=== PATIENT | male | born 1955 | race Caucasian/White ===

== ENCOUNTER 2018-09-18 09:10 | Observation (INO) ==
[2018-09-18] MEDS ORDERED: Sod Chloride 0.9% Inj 1,000 ML IV.SIG ONE (09:25)
--- NOTE | 2018-09-18 09:38 | ED ---
HPI General Chief Complaint: Syncope Stated Complaint: Sob Time Seen by Provider: 09/18/18 09:22 Source: patient Mode of arrival: ambulatory Limitations: no limitations History of Present Illness complaint: Reports collapsed Onset (ago): minute(s) -: second(s) Description of event: Reports other (Past status he was urinating this morning) Prodromal symptoms: Reports lightheaded Witnessed: no Context: Reports after urination Injuries sustained associated with event: Reports none Current symptoms: Reports lightheaded, chest pain and shortness of breath; Denies nausea History: Reports other (Patient reports that his blood pressure medications are being adjusted. He states that his is out of town. He states that his blood pressure always goes down when she is out of town.); Denies previous syncopal episode and seizure disorder Treatments prior to arrival: Reports none Related Data Home Medications Medication Instructions Recorded Confirmed amlodipine 5 mg PO DAILY 09/18/18 09/18/18 escitalopram oxalate 20 mg PO DAILY 09/18/18 09/18/18 losartan 50 mg PO DAILY 09/18/18 09/18/18 meloxicam 7.5 mg PO DAILY 09/18/18 09/18/18 simvastatin 20 mg PO QPM 09/18/18 09/18/18 Allergies Allergy/AdvReac Type Severity Reaction Status Date / Time ibuprofen Allergy Mild ITCHES Verified 09/18/18 09:40 Review of Systems ROS: all other systems reviewed are negative [facility] Medical History Medical History Hypertension (Acute) Surgical History Surgical History Gastric bypass status for obesity (Acute) Social History Social History Substance History: No History of Abuse Second Hand Smoke Exposure: No Smoking Status: Never smoker How Often Do You Have a Drink Containing Alcohol: 4 or more times a week Recent Travel in [facility] within the Last 8 Weeks: No Recent Out of Country Travel within the Last 8 Weeks: No Immunization History Tetanus Immunization: Unsure Exam Const General: cooperative, healthy appearing, comfortable, no acute distress, well developed and other (Looks pale) Orientation: alert, awake and oriented x3 HENMT Head: normal to inspection, normocephalic and atraumatic Eyes Alignment and Position: alignment normal and position abnormal Conjunctivae: conjunctivae normal Sclera: sclerae normal EOM: EOM intact bilaterally Neck Neck: normal visual inspection and full ROM Chest Chest: normal inspection of the chest Resp Effort & Inspection: normal respiratory effort and able to speak in complete sentences Auscultation: clear to auscultation bilaterally Cardio Rate: regular rate Rhythm: regular rhythm Other: Blood pressure seems a bit low with a systolic of 105. His heart rate is noted to go from the 80s while lying down to about 110 when sitting. GI Inspection: normal to inspection Palpation: soft Back/Spine/Pelvis Cervical Spine: cervical ROM normal Thoracic/Lumbar Spine: thoraco-lumbar ROM normal Skin General: no rashes or lesions noted, turgor normal and dry skin Neuro General: alert, awake, oriented x3, moves all extremities and CN's II-XI intact bilaterally Extrem General: normal to inspection and full ROM Psych Appearance: grossly normal Mental Status: mental status grossly normal Speech and Movement: speech and movement normal Mood: congruent mood Affect: normal affect Attitude: cooperative Thought Process: normal Thought Content: normal Judgment: judgment good Course Initial Documented Vital Signs Temperature 97.3 F L 09/18/18 09:11 Pulse Rate 110 H 09/18/18 09:11 Respiratory Rate 22 09/18/18 09:11 Blood Pressure 136/71 09/18/18 09:11 Last Documented Vital Signs Temperature 97.3 F L 09/18/18 09:11 Pulse Rate 66 09/18/18 11:08 Respiratory Rate 18 09/18/18 11:08 Blood Pressure 126/68 09/18/18 11:08 Pulse Oximetry 100 09/18/18 11:08 Critical Care Time Critical Care Time: Yes Total Critical Care Time: 45 Attestation: Time to perform other separately billable procedures was not included in the critical care time. My time did not include minutes spent treating any other patients simultaneously or on activities that did not directly contribute to the patient's treatment. The services I provided to this patient were to treat and/or prevent clinically significant deterioration due to syncope, chest pain, shortness of breath I provided critical care services requiring my management, as noted below: Chart data review, documentation time, medication orders and management, vital sign assessments/reviewing monitor data, ordering and reviewing lab tests, ordering and interpreting/reviewing x-rays and diagnostic studies, care of the patient and discussion of the patient with the admitting physicians Medical Decision Making MDM Narrative Medical decision making narrative: This patient presented to us following a syncopal or near syncopal event just prior to arrival. He was urinating when he passed out. Prodrome of lightheadedness. The patient reports that his blood pressure medication has recently been changed. He was noted to be relatively hypotensive at 106/55 on arrival with a heart rate of 93. Lying down , his heart rate was in the 80s. When he sat up, his heart rate went to 110. Based upon that, IV fluids were ordered. Labs have resulted. He does look like he is significantly dehydrated by BUN/ creatinine. He will be given another liter of fluid. Following that, orthostatic vital signs will be checked. 11:10 AM On recheck, the patient is complaining with significant chest discomfort and shortness of breath. He was complaining with chest discomfort and shortness of breath on arrival but those symptoms seemed pretty minor at the time. Initial troponin is negative. I have ordered aspirin, Nitropaste and morphine for him. 11:45 AM The patient reports that his symptoms are moderately improved with aspirin, Nitropaste and morphine. His initial workup is negative. He is being admitted to the chest pain center for further evaluation. Medical Screen Exam Complete: Yes Emergency Medical Condition: Yes Lab Data Lab results reviewed: Yes I reviewed the patient's lab results. Result diagrams: 09/18/18 09:37 09/18/18 09:37 Lab Results 09/18/18 09/18/18 Range/Units 09:37 09:37 WBC 9.3 (4.0-11.0) th/mm3 RBC 3.62 L (4.50-5.90) mil/mm3 Hgb 11.6 L (13.0-17.0) gm/dL Hct 33.1 L (39.0-51.0) % MCV 91.3 (80.0-100.0) fL MCH 31.9 (27.0-34.0) pg MCHC 34.9 (32.0-36.0) % RDW 13.2 (11.6-17.2) % Plt Count 279 (150-450) th/mm3 MPV 8.5 (7.0-11.0) fL Neut % (Auto) 75.5 H (16.0-70.0) % Lymph % (Auto) 15.6 (9.0-44.0) % [place] % (Auto) 6.7 (0.0-8.0) % Eos % (Auto) 1.6 (0.0-4.0) % Baso % (Auto) 0.6 (0.0-2.0) % Neut # (Auto) 7.0 (1.8-7.7) th/mm3 Lymph # (Auto) 1.4 (1.0-4.8) th/mm3 [place] # (Auto) 0.6 (0.0-0.9) th/mm3 Eos # (Auto) 0.1 (0.0-0.4) th/mm3 Baso # (Auto) 0.1 (0.0-0.2) th/mm3 WBC Differential . Differential Comment Auto diff final Sodium 143 (136-145) meq/L Potassium 4.6 (3.5-5.1) meq/L Chloride 111 H (98-107) meq/L Carbon Dioxide 24.1 (21.0-32.0) meq/L Anion Gap 8 (5-15) meq/L BUN 33 H (7-18) mg/dL Creatinine 0.89 (0.60-1.30) mg/dL Estimated GFR 87 L (>89) mL/min Random Glucose 121 H (74-106) mg/dL Calcium 7.8 L (8.5-10.1) mg/dL Troponin I Less than 0.02 L (0.02-0.05) ng/mL Imaging Data Radiologist's impression: Chest X-Ray 09/18/18 11:10 CONCLUSION: Negative for an acute process ECG Data EKG Prior to Arrival: No Attestation: I personally reviewed and interpreted this ECG as follows: Discharge Plan Discharge Disposition Patient Disposition: ED Admit(ED Internal Use Only) Discharge Order Discharge Orders: ED Use Only Admit Order (Routine); Ordered 09/18/18 Ordered By: Olivia Young Discharge Details Diagnosis: Chest pain, Syncope Physicians Team ED Provider: Olivia Young Primary Care Provider: UNKNOWN, Rxs /Orders / Referrals /Forms Prescriptions: No Action losartan 50 mg Tablet 50 mg PO DAILY RF: 0 amlodipine 5 mg Tablet 5 mg PO DAILY RF: 0 meloxicam 7.5 mg Tablet 7.5 mg PO DAILY RF: 0 simvastatin 20 mg Tablet 20 mg PO QPM RF: 0 escitalopram oxalate 20 mg Tablet 20 mg PO DAILY RF: 0 Status ED Status: With Doctor
[2018-09-18 09:46] LABS: Baso # (Auto) 0.1 th/mm3 (0.0-0.2); Baso % (Auto) 0.6 % (0.0-2.0); Eos # (Auto) 0.1 th/mm3 (0.0-0.4); Eos % (Auto) 1.6 % (0.0-4.0); Hematocrit 33.1 % (39.0-51.0); Hemoglobin 11.6 gm/dL (13.0-17.0); Lymph # (Auto) 1.4 th/mm3 (1.0-4.8); Lymph % (Auto) 15.6 % (9.0-44.0); Mean Corpuscular HGB Conc 34.9 % (32.0-36.0); Mean Corpuscular Hemoglobin 31.9 pg (27.0-34.0); Mean Corpuscular Volume 91.3 fL (80.0-100.0); Mean Platelet Volume 8.5 fL (7.0-11.0); Mono # (Auto) 0.6 th/mm3 (0.0-0.9); Mono % (Auto) 6.7 % (0.0-8.0); Neut % (Auto) 75.5 % (16.0-70.0); Platelet Count 279 th/mm3 (150-450); Red Blood Count 3.62 mil/mm3 (4.50-5.90); Red Cell Distribution Width 13.2 % (11.6-17.2); White Blood Count 9.3 th/mm3 (4.0-11.0)
[2018-09-18 10:08] LABS: Anion Gap 8 meq/L (5-15); Blood Urea Nitrogen 33 mg/dL (7-18); Calcium 7.8 mg/dL (8.5-10.1); Carbon Dioxide 24.1 meq/L (21.0-32.0); Chloride 111 meq/L (98-107); Glomerular Filtration Rate 87 mL/min (>89); Glucose,Random 121 mg/dL (74-106); Potassium 4.6 meq/L (3.5-5.1); Sodium 143 meq/L (136-145)
[2018-09-18] MEDS ORDERED: Sod Chloride 0.9% Inj 1,000 ML IV.SIG SCH (10:30)
[2018-09-18] MEDS ORDERED: Morphine Inj 4 MG/ML Vial IV.PUSH ONE (11:09)
--- NOTE | 2018-09-18 11:39 | XR ---
EXAM DATE: 09/18/2018 11:26 AM EST AGE/SEX: 63 years / Male INDICATIONS: Short of breath and mid chest pain. CLINICAL DATA: This is the patient's initial encounter. Patient reports that signs and symptoms have been present for 1 day and indicates a pain score of 7/10. MEDICAL/SURGICAL HISTORY: Hypertension. None. COMPARISON: . FINDINGS: A single AP view of the chest demonstrates the lungs to be symmetrically aerated without evidence of mass, infiltrate or effusion. The cardiomediastinal contours are unremarkable. Osseous structures a re intact. CONCLUSION: Negative for an acute process Electronically signed by: Landon Ocampo MD 09/18/2018 11:38 AM EST
[2018-09-18 13:58] LABS: Creatine Kinase 85 U/L (39-308)
--- NOTE | 2018-09-18 14:06 | P.HPCA ---
History of Present Illness Primary Care Physician: UNKNOWN Chief Complaint: Chest pain History of Present Illness: This is a 63-year-old male with history of hypertension, hyperlipidemia, and chronic knee pain that presents to ED via private vehicle with a friend with complaint of chest discomfort. States he woke up earlier this morning feeling sweaty. He decided to go to the bathroom. While in the bathroom about the urinate, he began to feel weak. He states he fell onto the toilet and then from there is slid down to the floor. Denies having loss of consciousness. Denied have sensation of heart beating rapidly or irregularly. Denied having a headache. Denied visual changes. He states the weakness was generalized weakness. Little bit after that is when he started having a chest pressure. The discomfort he describes was at the center of his chest and at times also to the right side of his chest. Worse level is a 7 out of 10. States is still present but not as bad as a 4 out of 10. He was short of breath, nauseous, diaphoretic. He states that when this happened he had his friend check his blood pressure and was 107/70. States is low for him. States that whenever his was out of town, his blood pressure goes lower. She is currently in [place]. Cannot recall ever having a stress test. He states he has seen a preanalytics team lead somewhat recently and had an EKG done, cannot recall who the preanalytics team lead was. History of hypertension, hyperlipidemia, and chronic knee pain. Denies known diabetes and known heart disease. Denies family history of CAD. He is a non-smoker. He has an average a glass of wine a day. Denies illicit drug use. He is . His is currently in [place]. - Diagnosis (1) Chest pain (2) Hypertension Review of Systems General: Patient denies fevers, chills, and recent travel. HEENT: Patient denies headache, sore throat, difficulty swallowing. Cardiovascular: Has the chest discomfort as mentioned above. Denies sensation of heart beating rapidly or irregularly. No syncope. Complains of diaphoresis. Respiratory: He was short of breath. Denies inspirational chest discomfort. Denies coughing wheezing or hemoptysis. GI: He was nauseous. Patient denies vomiting, diarrhea, abdominal pain, bloody stools. Musculoskeletal: Chronic knee pains. Patient denies joint edema. Denies calf pain or edema. Neurovascular: Patient denies numbness, tingling, weakness in extremities. Denies headache. Endocrine: Denies polyuria and polydipsia. Hematologic: Denies easy bruising. Skin: Denies rash or itching. PMFSH - History History Provided By: Patient - Medical History Medical History: Medical History (Last Reviewed 09/18/18 @ 09:36 by Olivia Young) Hypertension - Surgical History Surgical History: Surgical History (Last Updated 09/18/18 @ 09:23 by Emily Etienne RN) Gastric bypass status for obesity - Tobacco History Second Hand Smoke Exposure: No Smoking Status: Never smoker - Alcohol History How Often Do You Have a Drink Containing Alcohol: 4 or more times a week - Substance Use History Substance History: No History of Abuse - Travel History Recent Travel in the [place] Within the Last 8 Weeks: No Recent Travel Out of the Country Within the Last 8 Weeks: No - Immunization History Tetanus Immunization: Unsure Medications and Allergies Active Medications: Active Medications Aspirin (Aspirin) 325 mg PO DAILY TONY Ondansetron HCl (Zofran Inj) 4 mg IV.PUSH Q6H PRN PRN Reason: NAUSEA Sodium Chloride (Ns Flush) 2 ml IV.FLUSH BID TONY Sodium Chloride (Ns Flush) 2 ml IV.FLUSH PRN PRN PRN Reason: FLUSH AFTER USING IV ACCESS Allergies Allergy/AdvReac Type Severity Reaction Status Date / Time ibuprofen Allergy Mild ITCHES Verified 09/18/18 09:40 Home Medications Medication Instructions Recorded Confirmed Type amlodipine 5 mg PO DAILY 09/18/18 09/18/18 History escitalopram oxalate 20 mg PO DAILY 09/18/18 09/18/18 History losartan 50 mg PO DAILY 09/18/18 09/18/18 History meloxicam 7.5 mg PO DAILY 09/18/18 09/18/18 History simvastatin 20 mg PO QPM 09/18/18 09/18/18 History Exam Vital signs: Vital Signs 09/18/18 09:11 09/18/18 09:19 09/18/18 09:37 Temperature 97.3 F L Pulse Rate 110 H 81 93 H Respiratory Rate 22 18 Blood Pressure 136/71 106/55 L Pulse Oximetry 100 100 09/18/18 10:35 09/18/18 11:08 Temperature Pulse Rate 75 66 Respiratory Rate 18 18 Blood Pressure 126/68 126/68 Pulse Oximetry 100 100 Intake & Output 09/17/18 09/18/18 09/18/18 18:59 06:59 18:59 Intake Total 1999 Balance 1999 Weight 113.398 kg Intake: IV 1999 NS Inj 1,000 ML @ 1000 mls/hr 1999 IV.SIG BOLUS TONY Rx#:[id number] Narrative: GENERAL: This is a well-nourished, well-developed patient, in no apparent distress. Patient speaks in clear complete sentences. Patient is pleasant. HEENT: Head is atraumatic and normocephalic. Neck is supple without lymphadenopathy and trachea is midline. No JVD or carotid bruits. CARDIOVASCULAR: Regular rate and rhythm without murmurs, gallops, or rubs. RESPIRATORY: Clear to auscultation. Breath sounds equal bilaterally. No wheezes , rales, or rhonchi. Chest wall is nontender. No use of accessory muscles. GASTROINTESTINAL: Abdomen is nontender, nondistended. Abdomen soft. No obvious pulsatile mass or bruit. No CVA tenderness. Strong femoral pulses bilaterally. Normal bowel sounds in all quadrants. MUSCULOSKELETAL: Patient is moving upper and lower extremities freely. No calf tenderness or edema, no Homans sign. Strong pulses in upper and lower extremities. NEUROLOGICAL: Patient is alert and oriented. Cranial nerves 2-12 are grossly intact. No focal deficits and speech is clear. SKIN: No rash and turgor is normal. Results 09/18/18 09:37 09/18/18 09:37 Cardiac Enzymes 09/18/18 09/18/18 Range/Units 09:37 12:35 Troponin I Less than 0.02 L Less than 0.02 L (0.02-0.05) ng/mL CBC 09/18/18 Range/Units 09:37 WBC 9.3 (4.0-11.0) th/mm3 RBC 3.62 L (4.50-5.90) mil/mm3 Hgb 11.6 L (13.0-17.0) gm/dL Hct 33.1 L (39.0-51.0) % Plt Count 279 (150-450) th/mm3 Neut # (Auto) 7.0 (1.8-7.7) th/mm3 Lymph # (Auto) 1.4 (1.0-4.8) th/mm3 [place] # (Auto) 0.6 (0.0-0.9) th/mm3 Eos # (Auto) 0.1 (0.0-0.4) th/mm3 Baso # (Auto) 0.1 (0.0-0.2) th/mm3 Comprehensive Metabolic Panel 09/18/18 Range/Units 09:37 Sodium 143 (136-145) meq/L Potassium 4.6 (3.5-5.1) meq/L Chloride 111 H (98-107) meq/L Carbon Dioxide 24.1 (21.0-32.0) meq/L BUN 33 H (7-18) mg/dL Creatinine 0.89 (0.60-1.30) mg/dL Calcium 7.8 L (8.5-10.1) mg/dL Intake and Output 09/17/18 09/18/18 09/18/18 22:59 06:59 14:59 Intake Total 1999 Balance 1999 Intake: IV 1999 NS Inj 1,000 ML @ 1000 mls/hr 1999 IV.SIG BOLUS TONY Rx#:[id number] Other: Weight 113.398 kg Patient Weight 09/19/18 06:59 Weight 113.398 kg - Imaging and Cardiology Imaging: Impressions Chest X-Ray 09/18/18 11:10 CONCLUSION: Negative for an acute process Caprini VTE Risk Assessment Caprini VTE Risk Assessment: Moderate/High Risk (score >= 2) Caprini Risk Assessment Model: Point Value = 1 Point Value = 2 Point Value = 3 Point Value = 5 Age 41-60 Minor surgery BMI > 25 kg/m2 Swollen legs Varicose veins or History of unexplained or recurrent spontaneous Oral contraceptives or hormone replacement Sepsis (< 1 month) Serious lung disease, including pneumonia (< 1 month) Abnormal pulmonary function Acute myocardial infarction Congestive heart failure (< 1 month) History of inflammatory bowel disease Medical patient at bed rest Age 61-74 Arthroscopic surgery Major open surgery (> 45 min) Laparoscopic surgery (> 45 min) Malignancy Confined to bed (> 72 hours) Immobilizing plaster cast Central venous access Age >= 75 History of VTE Family history of VTE Factor V Leiden Prothrombin [id number] Lupus anticoagulant Anticardiolipin antibodies Elevated serum homocysteine Heparin-induced thrombocytopenia Other congenital or acquired thrombophilia Stroke (< 1 month) Elective arthroplasty Hip, pelvis, or leg fracture Acute spinal cord injury (< 1 month) Prophylaxis Regimen: Total Risk Factor Score Risk Level Prophylaxis Regimen 0-1 Low Early ambulation 2 Moderate Order ONE of the following: *Sequential Compression Device (SCD) *Heparin 5000 units SQ BID 3-4 Higher Order ONE of the following medications: *Heparin 5000 units SQ TID *Enoxaparin/Lovenox 40 mg SQ daily (WT < 150 kg, CrCl > 30 mL/min) *Enoxaparin/Lovenox 30 mg SQ daily (WT < 150 kg, CrCl > 10-29 mL/min) *Enoxaparin/Lovenox 30 mg SQ BID (WT < 150 kg, CrCl > 30 mL/min) AND/OR *Sequential Compression Device (SCD) 5 or more Highest Order ONE of the following medications: *Heparin 5000 units SQ TID (Preferred with Epidurals) *Enoxaparin/Lovenox 40 mg SQ daily (WT < 150 kg, CrCl > 30 mL/min) *Enoxaparin/Lovenox 30 mg SQ daily (WT < 150 kg, CrCl > 10-29 mL/min) *Enoxaparin/Lovenox 30 mg SQ BID (WT < 150 kg, CrCl > 30 mL/min) AND *Sequential Compression Device (SCD) Assessment and Plan - Assessment (1) Chest pain Code(s): R07.9 - Chest pain, unspecified Status: Acute (2) Hypertension Code(s): I10 - Essential (primary) hypertension Status: Acute - Plan * Chest pain: Patient will have serial cardiac enzymes and EKGs for ruling out purposes and will be seen by Dr. Dalton Bah of cardiology in the chest pain center. If he rules out, he will have a Lexiscan and if nonischemic would be discharged home with instructions to follow-up with PCP and his preanalytics team lead. Return to ED for interval issues. * Hypertension: Continue medication. Patient is stable at this time. He is agreeable to this plan. (1) Chest pain Qualifiers: Chest pain type: unspecified Qualified Code(s): R07.9 - Chest pain, unspecified
[2018-09-18] MEDS ORDERED: Regadenoson Inj 0.4 MG/5 ML Syringe IV.PUSH ONE (16:37)
[2018-09-18 16:41] LABS: Creatine Kinase 79 U/L (39-308)
--- NOTE | 2018-09-18 19:34 | NM ---
EXAM DATE: 09/18/2018 7:28 PM EST AGE/SEX: 63 years / Male INDICATIONS:Angina. . Substernal chest pain. CLINICAL DATA: This is the patient's initial encounter. Patient reports that signs and symptoms have been present for 1 day and indicates a pain score of 0/10. MEDICAL/SURGICAL HISTORY: Hypertension. Gastric bypass. COMPARISON: No prior exams available for comparison. DOSE: 11.1 mCi Tc 99m Myoview at rest 35.2 mCi [id number] at stress 0.4 mg Lexiscan STRESS SYMPTOMS: Chest pressure. EJECTION FRACTION: 65 % TECHNIQUE: The patient underwent pharmacologic stress with infusion of prescribed dose. Continuous ECG tracing was monitored during stress. Gated SPECT imaging was performed after stress and conventi onal SPECT imaging was performed at rest. The examination was performed on a SPECT/CT scanner, both attenuation and non-corrected datasets were reviewed. FINDINGS: Distribution: The maximum perfused segment at stress is in the anterior wall. Perfusion Study: The pattern of perfusion at stress is within normal limits. The summed stress sc ore of 1. Gated Study: There are intact wall motion and wall thickening without hypokinetic or dyskinetic segm ents. The ejection fraction is calculated at 65%. RISK CATEGORY: Low (<1% Annual Motality Rate) CONCLUSION: 1. Normal wall motion and calculated ejection fraction of 65%. 2. No fixed or reversible wall defects to suggest ischemia or infarction. Electronically signed by: Tony Katz MD 09/18/2018 7:33 PM EST
[2018-09-18 20:20] VITALS: RESP 17
[2018-09-18] MEDS ORDERED: Acetaminophen 500 MG Tablet PO PRN (20:40)
[2018-09-19 00:25] VITALS: BP 121/66; PULSE 77; TEMP 99; O2SAT 97
[2018-09-19] MEDS ORDERED: Aspirin 325 MG Tablet PO SCH (09:00)
--- NOTE | 2018-09-19 09:14 | ECG ---
Date Performed: 09/18/2018 Time Performed: 12:30:18 PTAGE: 63 years EKG: Sinus rhythm RIGHT BUNDLE BRANCH BLOCK LEFT ANTERIOR FASCICULAR BLOCK POSSIBLE SEPTAL MYOCARDIAL INFARCTION ABNOR MAL ECG INTERPRETATION BASED ON A DEFAULT AGE OF 40 YEARS PREVIOUS TRACING : 09/18/2018 09.26 Since previous tracing, no significant change noted DOCTOR: Dalton Bah Interpretating Date/Time 09/19/2018 09:13:37
--- NOTE | 2018-09-19 09:15 | ECG ---
Date Performed: 09/18/2018 Time Performed: 09:26:19 PTAGE: 63 years EKG: Sinus rhythm RIGHT BUNDLE BRANCH BLOCK LEFT ANTERIOR FASCICULAR BLOCK POSSIBLE SEPTAL MYOCARDIAL INFARCTION ABNOR MAL ECG INTERPRETATION BASED ON A DEFAULT AGE OF 40 YEARS PREVIOUS TRACING : 07/30/2013 09.40 Since previous tracing, no significant change noted DOCTOR: Dalton Bah Interpretating Date/Time 09/19/2018 09:14:40
--- NOTE | 2018-09-19 09:21 | TR ---
Date Performed: 09/18/2018 Time Performed: 16:55:29 DOCTOR: Dalton Bah DRUG LIST: CLINICAL HISTORY: REASON FOR TEST: Angina REASON FOR ENDING: OBSERVATION: CONCLUSION: COMMENTS: Lexiscan stress test was performed under standard four minute protocol. Radionuclide was injected one minute prior to ending the test. No electrocardiographic abormalities were present t o suggest ischemia. Nuclear imaging and interpretation are pending.
== END 2018-09-19 01:25 | disposition home or self-care (01) ==
LOC: NEDA 09:10 → NEPE 09:10 → NEDA 15:21 → NEPFCDU 15:23
PROVIDERS: ADMIT Internal Medicine Cardiovascular Disease; ATTEND Internal Medicine Cardiovascular Disease

== ENCOUNTER 2018-09-19 10:41 | Observation (INO) ==
--- NOTE | 2018-09-19 11:39 | ED ---
HPI General Chief complaint: Weakness Stated complaint: Poss GI bleed / weakness Time Seen by Provider: 09/19/18 10:50 Source: patient, EMS, RN notes reviewed and old records reviewed Mode of arrival: EMS History of Present Illness HPI narrative: 63yM presenting with weakness. The patient was seen here yesterday for chest pain, kept in chest pain center for observation, and discharged. He states that he's been having generalized weakness since his discharge and reports black/ tarry stools for the past several days. Denies fever or chills, current chest pain, cough, nausea or vomiting, diarrhea, or dysuria. Admits to dyspnea at rest and near-syncope prior to his evaluation yesterday. Related Data Home Medications Medication Instructions Recorded Confirmed amlodipine 5 mg PO DAILY 09/18/18 09/19/18 escitalopram oxalate 20 mg PO DAILY 09/18/18 09/19/18 losartan 50 mg PO DAILY 09/18/18 09/19/18 meloxicam 7.5 mg PO DAILY 09/18/18 09/19/18 simvastatin 20 mg PO QPM 09/18/18 09/19/18 Allergies Allergy/AdvReac Type Severity Reaction Status Date / Time ibuprofen Allergy Mild ITCHES Verified 09/18/18 09:40 Review of Systems ROS: all other systems reviewed are negative [facility] Medical History Medical History Depression (Acute) Hyperchloremia (Acute) Hypertension (Acute) Surgical History Surgical History Gastric bypass status for obesity (Acute) Social History Social History Substance History: No History of Abuse Second Hand Smoke Exposure: No Smoking Status: Never smoker How Often Do You Have a Drink Containing Alcohol: 4 or more times a week Recent Travel in [facility] within the Last 8 Weeks: No Recent Out of Country Travel within the Last 8 Weeks: No Immunization History Tetanus Immunization: Unsure Exam Const General: healthy appearing and no acute distress HENMT Face and sinus: normal facial exam Eyes General: appearance normal, both eyes and all related structures Chest Chest: normal inspection of the chest Resp Effort & Inspection: normal respiratory effort Auscultation: no rhonchi and no wheezes Cardio Rate: regular rate Rhythm: regular rhythm GI Inspection: non-distended Palpation: soft and nontender Other: 1 non-thrombosed external hemorrhoid noted at 11:00 position, no fissures , stool black, guaiac positive Rectal exam chaperoned by Humphrey (ED RN) Skin General: no rashes or lesions noted Neuro General: alert, awake, oriented x3 and no focal motor deficits Psych Affect: normal affect Course Initial Documented Vital Signs Pulse Rate 68 09/19/18 10:46 Respiratory Rate 18 09/19/18 10:46 Blood Pressure 116/64 09/19/18 10:46 Pulse Oximetry 99 09/19/18 10:46 Last Documented Vital Signs Pulse Rate 73 09/19/18 10:50 Respiratory Rate 18 09/19/18 10:50 Blood Pressure 116/64 09/19/18 10:50 Pulse Oximetry 97 09/19/18 10:50 Medical Decision Making MDM Narrative Medical decision making narrative: Assessment: 63yM presenting with generalized weakness and guaiac positive stool Plan: EKG and monitor Labs CT abd/ pelvis Addendum: Patient found to have acute blood loss anemia (Hg 11.6--> 9.3 in 24 hours) and remains symptomatic. The remainder of his workup showed no significant abnormalities. Case discussed with Dr. Anderson of [facility], patient to stay for observation and further workup. Patient understands and agrees with plan. Medical Screen Exam Complete: Yes Emergency Medical Condition: Yes Differential Diagnosis Differential Diagnosis: Differential diagnosis includes, but is not limited to: lower GI bleed, anemia, diverticulosis, mass, electrolyte abnormality, arrhythmia Medical Records Medical records reviewed: Yes I reviewed the patient's medical records. Lab Data Lab results reviewed: Yes I reviewed the patient's lab results. Result diagrams: 09/19/18 11:09/19/18 11: Lab Results 09/19/18 09/19/18 09/19/18 Range/Units 11:13 11: 11: WBC 7.6 (4.0-11.0) th/mm3 RBC 2.89 L (4.50-5.90) mil/mm3 Hgb 9.3 L D (13.0-17.0) gm/dL Hct 26.4 L (39.0-51.0) % MCV 91.2 (80.0-100.0) fL MCH 32.0 (27.0-34.0) pg MCHC 35.1 (32.0-36.0) % RDW 13.4 (11.6-17.2) % Plt Count 221 (150-450) th/mm3 MPV 8.6 (7.0-11.0) fL Neut % (Auto) 59.1 (16.0-70.0) % Lymph % (Auto) 29.7 (9.0-44.0) % Simpson % (Auto) 8.4 H (0.0-8.0) % Eos % (Auto) 2.0 (0.0-4.0) % Baso % (Auto) 0.8 (0.0-2.0) % Neut # (Auto) 4.5 (1.8-7.7) th/mm3 Lymph # (Auto) 2.3 (1.0-4.8) th/mm3 Simpson # (Auto) 0.6 (0.0-0.9) th/mm3 Eos # (Auto) 0.2 (0.0-0.4) th/mm3 Baso # (Auto) 0.1 (0.0-0.2) th/mm3 WBC Differential . Differential Comment Auto diff final Sodium 143 (136-145) meq/L Potassium 4.3 (3.5-5.1) meq/L Chloride 111 H (98-107) meq/L Carbon Dioxide 24.8 (21.0-32.0) meq/L Anion Gap 7 (5-15) meq/L BUN 24 H (7-18) mg/dL Creatinine 0.89 (0.60-1.30) mg/dL Estimated GFR 87 L (>89) mL/min Random Glucose 100 (74-106) mg/dL Calcium 8.1 L (8.5-10.1) mg/dL Magnesium 2.2 (1.5-2.5) mg/dL Total Bilirubin 0.5 (0.2-1.0) mg/dL AST 25 (15-37) U/L ALT 20 (12-78) U/L Alkaline Phosphatase 77 (45-117) U/L Troponin I Less than 0.02 L (0.02-0.05) ng/mL Total Protein 6.1 L (6.4-8.2) g/dL Albumin 3.0 L (3.4-5.0) g/dL Blood Type A Positive Blood Type Recheck Required Antibody Screen Negative Imaging Data Radiologist's impression: Abdomen/Pelvis CT 09/19/18 11:07 CONCLUSION: 1. Postsurgical changes in the gastric and gastroesophageal region characteristic of lap band placement. 2. Small hiatal hernia above the lap band. 3. Otherwise no evidence of acute process, suspicious mass or lymphadenopathy. ECG Data Attestation: I personally reviewed and interpreted this ECG as follows: Interpretation: Rate: 63 BPM Rhythm: Sinus Laurel: Left Intervals: Complete RBBB, QTc 458 ms Q waves: None T waves: Inverted in III ST segments: No elevations or depressions Impression: Non-specific EKG, no changes as compared to EKG from 09/18/2018. Discharge Plan Discharge Disposition Patient Disposition: ED Admit(ED Internal Use Only) Discharge Condition Condition: Stable Discharge Order Discharge Orders: ED Use Only Admit Order (Routine); Ordered 09/19/18 Ordered By: Claire Larios Discharge Details Diagnosis: Acute blood loss anemia, Acute lower GI bleeding Physicians Team ED Provider: Claire Larios Primary Care Provider: UNKNOWN, Rxs /Orders / Referrals /Forms Prescriptions: No Action losartan 50 mg Tablet 50 mg PO DAILY RF: 0 amlodipine 5 mg Tablet 5 mg PO DAILY RF: 0 meloxicam 7.5 mg Tablet 7.5 mg PO DAILY RF: 0 simvastatin 20 mg Tablet 20 mg PO QPM RF: 0 escitalopram oxalate 20 mg Tablet 20 mg PO DAILY RF: 0 Discharge Interventions Interventions: Vital Signs Last Done: 09/19/18 10:50 Status ED Status: Pending Admission
[2018-09-19 11:47] LABS: Baso # (Auto) 0.1 th/mm3 (0.0-0.2); Baso % (Auto) 0.8 % (0.0-2.0); Eos # (Auto) 0.2 th/mm3 (0.0-0.4); Hematocrit 26.4 % (39.0-51.0); Hemoglobin 9.3 gm/dL (13.0-17.0); Lymph # (Auto) 2.3 th/mm3 (1.0-4.8); Lymph % (Auto) 29.7 % (9.0-44.0); Mean Corpuscular HGB Conc 35.1 % (32.0-36.0); Mean Corpuscular Volume 91.2 fL (80.0-100.0); Mean Platelet Volume 8.6 fL (7.0-11.0); Mono # (Auto) 0.6 th/mm3 (0.0-0.9); Mono % (Auto) 8.4 % (0.0-8.0); Neut # (Auto) 4.5 th/mm3 (1.8-7.7); Neut % (Auto) 59.1 % (16.0-70.0); Platelet Count 221 th/mm3 (150-450); Red Blood Count 2.89 mil/mm3 (4.50-5.90); Red Cell Distribution Width 13.4 % (11.6-17.2); White Blood Count 7.6 th/mm3 (4.0-11.0)
[2018-09-19 11:58] LABS: Anion Gap 7 meq/L (5-15); Aspartate Aminotransferase 25 U/L (15-37); Blood Urea Nitrogen 24 mg/dL (7-18); Calcium 8.1 mg/dL (8.5-10.1); Carbon Dioxide 24.8 meq/L (21.0-32.0); Chloride 111 meq/L (98-107); Glomerular Filtration Rate 87 mL/min (>89); Glucose,Random 100 mg/dL (74-106); Magnesium 2.2 mg/dL (1.5-2.5); Potassium 4.3 meq/L (3.5-5.1); Sodium 143 meq/L (136-145)
[2018-09-19 11:59] LABS: Alanine Aminotransferase 20 U/L (12-78)
[2018-09-19 12:03] LABS: Alkaline Phosphatase 77 U/L (45-117); Total Protein 6.1 g/dL (6.4-8.2)
--- NOTE | 2018-09-19 13:32 | CT ---
EXAM DATE: 09/19/2018 1:19 PM EST AGE/SEX: 63 years / Male INDICATIONS: Blood in stool, weakness. CLINICAL DATA: This is the patient's initial encounter. Patient reports that signs and symptoms have been present for 1 day and indicates a pain score of 0/10. MEDICAL/SURGICAL HISTORY: Hypertension. Gastric bypass. ORAL CONTRAST: No oral contrast ingested. RADIATION DOSE: 24.10 CTDI (mGy) COMPARISON: No prior exams available for comparison. TECHNIQUE: Multiple contiguous axial images were obtained through the abdomen and pelvis following b olus infusion of 94 ml Omnipaque 350 (iohexol) nonionic water-soluble contrast as a single exam dos e. No oral contrast ingested. Using automated exposure control and adjustment of the mA and/or kV ac cording to patient size, radiation dose was kept as low as reasonably achievable to obtain optimal di agnostic quality images. DICOM format image data is available electronically for review and comparis on. FINDINGS: Lower Lungs: The visualized lower lungs are clear. Liver: The liver has a homogeneous density without space-occupying lesion. There is no dilation of th e biliary tree. Gallbladder is mildly distended. There is no evidence of cholelithiasis or wall thick ening. Spleen: Homogeneous density without enlargement. Pancreas: Unremarkable without mass or calcification. Kidneys: Normal in size and shape. No evidence of mass or hydronephrosis. Adrenal Glands: Unremarkable. Aorta: The aorta and proximal iliac vessels are grossly unremarkable without aneurysmal dilation. Bowel/Mesentery: Postsurgical changes are identified in the gastric region. Anastomotic sutures ident ified in the cardia of the stomach. A gastric lap band is noted in place. The distal esophagus demons trates mild generalized wall thickening part of which may represent a small residual hiatal hernia. The bowel loops are otherwise grossly unremarkable. The cecum and sigmoid colon have a normal config uration. Abdominal Wall: Intact. Retroperitoneum: No evidence of adenopathy in the retrocrural, para-aortic, or deep pelvic regions. Bladder: Contours are smooth. Reproductive Organs: No abnormal masses or calcifications seen. Inguinal: A fat-containing left inguinal hernia is noted. Bony Structures: Unremarkable. CONCLUSION: 1. Postsurgical changes in the gastric and gastroesophageal region characteristic of lap band placem ent. 2. Small hiatal hernia above the lap band. 3. Otherwise no evidence of acute process, suspicious mass or lymphadenopathy. Electronically signed by: Carlton F Tony, MD Board Certified Radiologist 09/19/2018 1:31 PM EST
--- NOTE | 2018-09-19 14:35 | P.HPIM ---
History of Present Illness Primary Care Physician: UNKNOWN Chief Complaint: ' I almost passed out'. History of Present Illness: patient is a 63 y/o male with history of hypertension and dyslipidemia who presented back to ER with generalized weakness. he was admitted to this hospital yesterday because of chest pain. he had a negative stress test and was discharged home. he says that today when he was in the bathroom he felt dizzy and lightheaded along with some sob. he says that ' he was about to pass out'. he denies any chest pain today. he has mild generalized abdominal discomfort with no nausea or vomiting. he says that he noticed some ' very black stools' yesterday.he denies any diarrhea/ constipation or weight loss. he denies any NSAIDs use. he says that he had a colonoscopy about nine years ago which was reportedly normal. Review of Systems Review of Systems: all other systems reviewed are negative [facility] Medical History Medical History Depression (Acute) Hyperchloremia (Acute) Hypertension (Acute) Surgical History Surgical History Gastric bypass status for obesity (Acute) Social History Social History Substance History: No History of Abuse Second Hand Smoke Exposure: No Smoking Status: Never smoker How Often Do You Have a Drink Containing Alcohol: 4 or more times a week Recent Travel in [facility] within the Last 8 Weeks: No Recent Out of Country Travel within the Last 8 Weeks: No Immunization History Tetanus Immunization: Unsure Medications and Allergies Allergies Allergy/AdvReac Type Severity Reaction Status Date / Time ibuprofen Allergy Mild ITCHES Verified 09/18/18 09:40 Home Medications Medication Instructions Recorded Confirmed Type amlodipine 5 mg PO DAILY 09/18/18 09/19/18 History escitalopram oxalate 20 mg PO DAILY 09/18/18 09/19/18 History losartan 50 mg PO DAILY 09/18/18 09/19/18 History meloxicam 7.5 mg PO DAILY 09/18/18 09/19/18 History simvastatin 20 mg PO QPM 09/18/18 09/19/18 History Active Medications: Active Medications Escitalopram Oxalate (Lexapro) 20 mg PO DAILY TONY Non-Formulary Medication (Simvastatin [Simvastatin]) 20 mg PO QPM [facility] Pantoprazole Sodium (Protonix Inj) 40 mg IV.PUSH Q24H [facility] Sodium Chloride (Ns Flush) 2 ml IV.FLUSH PRN PRN PRN Reason: FLUSH AFTER USING IV ACCESS Physical Exam Vital signs: Last Vital Signs Pulse 73 09/19/18 10:50 Resp 18 09/19/18 10:50 BP 116/64 09/19/18 10:50 Pulse Ox 97 09/19/18 10:50 Intake & Output 09/17/18 09/18/18 09/19/18 09/20/18 06:59 06:59 06:59 06:59 Weight 113.398 kg Constitutional no acute distress Routine HEENT Exam Eye: Present PERRL Routine Neck Exam Present supple Routine Respiratory Exam Present CTA bilaterally Routine Cardiovascular Exam Present RRR Routine Abdominal Exam Present soft Comments: minimal to mild generalized tenderness. Routine Extremities Exam Comments: no pedal edema. Routine Neurological Exam Present alert and oriented X3 Results Labs CBC & Chem 7: 09/19/18 11:13 09/19/18 11:13 Imaging Impressions Abdomen/Pelvis CT 09/19/18 11:07 CONCLUSION: 1. Postsurgical changes in the gastric and gastroesophageal region characteristic of lap band placement. 2. Small hiatal hernia above the lap band. 3. Otherwise no evidence of acute process, suspicious mass or lymphadenopathy. Caprini VTE Risk Assessment Caprini VTE Risk Assessment: Moderate/High Risk (score >= 2) VTE Pharmacological Exception Reason: High risk for bleeding Caprini Risk Assessment Model: Point Value = 1 Point Value = 2 Point Value = 3 Point Value = 5 Age 41-60 Minor surgery BMI > 25 kg/m2 Swollen legs Varicose veins or History of unexplained or recurrent spontaneous Oral contraceptives or hormone replacement Sepsis (< 1 month) Serious lung disease, including pneumonia (< 1 month) Abnormal pulmonary function Acute myocardial infarction Congestive heart failure (< 1 month) History of inflammatory bowel disease Medical patient at bed rest Age 61-74 Arthroscopic surgery Major open surgery (> 45 min) Laparoscopic surgery (> 45 min) Malignancy Confined to bed (> 72 hours) Immobilizing plaster cast Central venous access Age >= 75 History of VTE Family history of VTE Factor V Leiden Prothrombin [id number] Lupus anticoagulant Anticardiolipin antibodies Elevated serum homocysteine Heparin-induced thrombocytopenia Other congenital or acquired thrombophilia Stroke (< 1 month) Elective arthroplasty Hip, pelvis, or leg fracture Acute spinal cord injury (< 1 month) Prophylaxis Regimen: Total Risk Factor Score Risk Level Prophylaxis Regimen 0-1 Low Early ambulation 2 Moderate Order ONE of the following: *Sequential Compression Device (SCD) *Heparin 5000 units SQ BID 3-4 Higher Order ONE of the following medications: *Heparin 5000 units SQ TID *Enoxaparin/Lovenox 40 mg SQ daily (WT < 150 kg, CrCl > 30 mL/min) *Enoxaparin/Lovenox 30 mg SQ daily (WT < 150 kg, CrCl > 10-29 mL/min) *Enoxaparin/Lovenox 30 mg SQ BID (WT < 150 kg, CrCl > 30 mL/min) AND/OR *Sequential Compression Device (SCD) 5 or more Highest Order ONE of the following medications: *Heparin 5000 units SQ TID (Preferred with Epidurals) *Enoxaparin/Lovenox 40 mg SQ daily (WT < 150 kg, CrCl > 30 mL/min) *Enoxaparin/Lovenox 30 mg SQ daily (WT < 150 kg, CrCl > 10-29 mL/min) *Enoxaparin/Lovenox 30 mg SQ BID (WT < 150 kg, CrCl > 30 mL/min) AND *Sequential Compression Device (SCD) Assessment and Plan Plan A/P - GI bleed with history of gastric bypass/lap ban placement ; keep NPO for now- monitor H/H - start on PPI and consult GI. continue with supportive care with IV fluid/ antiemetics as needed. -anemia (Hb 11.6 yesterday ---> 9.3 today)/near syncope; will monitor H/H and transfuse as needed. of note; the patient just had a recent negative stress test. -hypertension; hold home BP meds for now and continue to monitor. -dyslipidemia; resume home meds -DVT prophylaxis with SCD's- no chemical prophylaxis due to GI bleed. Discussed Condition With: the ER physician and the patient. Discharge Planning: home when stable- pending GI work-up.
--- NOTE | 2018-09-19 15:08 | P.CONGI ---
History of Present Illness Chief complaint: Acute blood loss anemia, lower GI bleed. History of Present Illness: This is a 63 y/o male with history of hypertension and dyslipidemia, gastric by pass, GERD who presented to ER with generalized weakness. he was admitted to this hospital yesterday with chest pain, had negative stress test and was discharged home. He continued to feel dizzy, almost passing out. Endorses generalized abdominal discomfort but no nausea or vomiting. Endorses black tarry stools started yesterday. Denies any diarrhea, constipation or weight loss. he denies any NSAIDs use. He takes Tums as needed for GERD. drinks one glass of wine daily Last time he had colonoscopy was nine years ago. He has hx of gastric bypass and has been on iron supplement for long time. Abdomen/ Pelvis CT 09/19/18 Postsurgical changes in the gastric and gastroesophageal region characteristic of lap band placement. Small hiatal hernia above the lap band. Otherwise no evidence of acute process, suspicious mass or lymphadenopathy. labs revealed anemia of 9.3. Review of Systems All other systems reviewed negative except as stated in HPI PMFSH - History History Provided By: Patient - Medical History Medical History: Medical History (Last Reviewed 09/19/18 @ 14:34 by Luz Anderson MD) Depression Hyperchloremia Hypertension - Surgical History Surgical History: Surgical History (Last Reviewed 09/19/18 @ 14:34 by Luz Anderson MD) Gastric bypass status for obesity - Tobacco History Second Hand Smoke Exposure: No Tobacco Use In Past 30 Days: No Smoking Status: Never smoker - Alcohol History How Often Do You Have a Drink Containing Alcohol: 4 or more times a week - Substance Use History Substance History: No History of Abuse - Travel History Recent Travel in the [place] Within the Last 8 Weeks: No Recent Travel Out of the Country Within the Last 8 Weeks: No - Immunization History Tetanus Immunization: Unsure Medications and Allergies Active Medications: Active Medications Escitalopram Oxalate (Lexapro) 20 mg PO DAILY TON[facility] Sodium Chloride (Ns Inj) 1,000 mls @ 100 mls/hr IV.CONT .Q10H [facility] Ondansetron HCl (Zofran Inj) 4 mg IV.PUSH Q8H PRN PRN Reason: NAUSEA Pantoprazole Sodium (Protonix Inj) 40 mg IV.PUSH Q24H [facility] Pravastatin Sodium (Pravachol) 40 mg PO HS [facility]ON[facility] Sodium Chloride (Ns Flush) 2 ml IV.FLUSH PRN PRN PRN Reason: FLUSH AFTER USING IV ACCESS Allergies Allergy/AdvReac Type Severity Reaction Status Date / Time ibuprofen Allergy Mild ITCHES Verified 09/18/18 09:40 Home Medications Medication Instructions Recorded Confirmed Type amlodipine 5 mg PO DAILY 09/18/18 09/19/18 History escitalopram oxalate 20 mg PO DAILY 09/18/18 09/19/18 History losartan 50 mg PO DAILY 09/18/18 09/19/18 History meloxicam 7.5 mg PO DAILY 09/18/18 09/19/18 History simvastatin 20 mg PO QPM 09/18/18 09/19/18 History Exam Vital signs: Vital Signs 09/19/18 10:46 09/19/18 10:50 Pulse Rate 68 73 Respiratory Rate 18 18 Blood Pressure 116/64 116/64 Pulse Oximetry 99 97 Intake & Output 09/18/18 09/19/18 09/19/18 18:59 06:59 18:59 Weight 113.398 kg - Constitutional no acute distress - Routine HEENT Exam Head: Present: normocephalic - Routine Cardiovascular Exam Present: RRR - Routine Abdominal Exam Present: soft, normoactive bowel sounds, tenderness. Absent: distended - Routine Skin Exam Present: intact, dry - Routine Neurological Exam Present: alert, oriented X3 Results - Labs CBC & Chem 7: 09/19/18 11:13 09/19/18 11:13 Labs: Laboratory Results - last 24 hr 09/19/18 09/19/18 09/19/18 11:13 11:13 11:13 WBC 7.6 RBC 2.89 L Hgb 9.3 L D Hct 26.4 L MCV 91.2 MCH 32.0 MCHC 35.1 RDW 13.4 Plt Count 221 MPV 8.6 Neut % (Auto) 59.1 Lymph % (Auto) 29.7 Emmons % (Auto) 8.4 H Eos % (Auto) 2.0 Baso % (Auto) 0.8 Neut # (Auto) 4.5 Lymph # (Auto) 2.3 Emmons # (Auto) 0.6 Eos # (Auto) 0.2 Baso # (Auto) 0.1 WBC Differential . Differential Comment Auto diff final Sodium 143 Potassium 4.3 Chloride 111 H Carbon Dioxide 24.8 Anion Gap 7 BUN 24 H Creatinine 0.89 Estimated GFR 87 L Random Glucose 100 Calcium 8.1 L Magnesium 2.2 Total Bilirubin 0.5 AST 25 ALT 20 Alkaline Phosphatase 77 Troponin I Less than 0.02 L Total Protein 6.1 L Albumin 3.0 L Blood Type A Positive Blood Type Recheck Required Antibody Screen Negative - Imaging Impressions Abdomen/Pelvis CT 09/19/18 11:07 CONCLUSION: 1. Postsurgical changes in the gastric and gastroesophageal region characteristic of lap band placement. 2. Small hiatal hernia above the lap band. 3. Otherwise no evidence of acute process, suspicious mass or lymphadenopathy. Assessment and Plan - Plan - Anemia, black stools- could be PUD, hx of gastric bypass. Endorses generalized abdominal discomfort but no nausea or vomiting. Endorses black tarry stools started yesterday. Denies any diarrhea, constipation or weight loss. he denies any NSAIDs use. He takes Tums as needed for GERD. drinks one glass of wine daily Last time he had colonoscopy was nine years ago. He has hx of gastric bypass and has been on iron supplement for long time. Abdomen/Pelvis CT 09/19/18 Postsurgical changes in the gastric and gastroesophageal region characteristic of lap band placement. Small hiatal hernia above the lap band. Otherwise no evidence of acute process, suspicious mass or lymphadenopathy. labs revealed anemia of 9.3. - History of hypertension and dyslipidemia, gastric by pass, GERD Plan: - Clears - EGD/colonoscopy in the am - Golytely today - Consents - NPO mn - Monitor hh - Transfuse as needed - Cont. PPI - Pt seen and examined by Dr. Paulson and myself and this note is written on his behalf
[2018-09-19] MEDS ORDERED: PEG 3350/E-Lyte Soln 4000 ML Bottle PO ONE (16:00)
[2018-09-19] MEDS: Pantoprazole Inj 40 MG Vial IV.PUSH SCH (17:38)
[2018-09-19] MEDS: Sod Chloride 0.9% Inj 1,000 ML IV.CONT SCH (17:40)
[2018-09-19 19:07] LABS: Hematocrit 28.9 % (39.0-51.0); Hemoglobin 9.9 gm/dL (13.0-17.0)
[2018-09-20 00:47] LABS: Hematocrit 24.8 % (39.0-51.0)
[2018-09-20] MEDS: Sod Chloride 0.9% Inj 1,000 ML IV.CONT SCH ×2 (02:27→12:45)
[2018-09-20 04:56] LABS: Hematocrit 25.4 % (39.0-51.0); Hemoglobin 8.6 gm/dL (13.0-17.0)
--- NOTE | 2018-09-20 11:54 | P.PNIM ---
Subjective Interval history: Patient seen and evaluated shortly after colonoscopy performed. Patient was recently discharged but returns to emergency department for complaints of generalized weakness found to have low hemoglobin 9.3 from previously being greater than 11 patient endorsed symptoms of weakness, shortness of breath, and very few palpitations which he thinks may be secondary to anxiety. Physical Exam Vital signs: Last Vital Signs Temp 98.7 F 09/20/18 08:00 Pulse 68 09/20/18 08:00 Resp 16 09/20/18 08:00 BP 119/76 09/20/18 08:00 Pulse Ox 98 09/20/18 08:00 Intake & Output 09/18/18 09/19/18 09/20/18 09/21/18 06:59 06:59 06:59 06:59 Intake Total 2014 Balance 2014 Weight 113.469 kg General: No acute distress, conversational HEENT: EOMI, no conjunctival pallor appreciated Cardiovascular: S1/S2. Regular Respiratory: Clear to auscultation anteriorly and posteriorly Gastrointestinal: Soft, minimal tenderness in epigastric region, nondistended, no guarding, no rebound. Positive bowel sounds Extremity: No lower extremity edema, no calf tenderness Results Labs CBC & Chem 7: 09/20/18 03:40 09/19/18 11:13 Imaging Imaging: Impressions Abdomen/Pelvis CT 09/19/18 11:07 CONCLUSION: 1. Postsurgical changes in the gastric and gastroesophageal region characteristic of lap band placement. 2. Small hiatal hernia above the lap band. 3. Otherwise no evidence of acute process, suspicious mass or lymphadenopathy. Assessment and Plan Plan Patient is a 63-year-old male with past medical history of hypertension, and hyper lipidemia with recent admission 09/18-09/19 for generalized weakness found to have negative stress test and discharge presenting for generalized weakness and abdominal pain found to have reduced hemoglobin level concerning for acute blood loss anemia. Gastroenterology: Acute blood loss anemia Gastroenterology consulted and recommendation is appreciated via EMR. Colonoscopy 09/20 Maintain 2 large-bore peripheral IVs and IV fluid hydration currently n.p.o. Transfuse less than 7 Cardiology: Hypertension, hyperlipidemia Hold home antihypertensive for now CODE STATUS: Full code DVT prophylaxis: SCD Disposition: MedSurg Diet: Currently n.p.o. Progress Note: Quality VTE Deep Vein Thrombosis/Pulmonary Embolism Present on Admission: No
--- NOTE | 2018-09-20 12:15 | GIPROC ---
[facility] [address] [facility]. [facility], [address] COLONOSCOPY PROCEDURE REPORT EXAM DATE: 09/20/2018 PATIENT NAME: Qamar Coon MR #: [id number] BIRTHDATE: 1955 ENDOSCOPIST: Iker Paulson MD ORDER #: [id number] MANAGER ORACLE: Gabby Vivar and Shena Veronica STATUS: inpatient INDICATIONS: The patient is a 63 yr old male here for a colonoscopy due to iron deficiency anemia and melena PROCEDURE PERFORMED: Colonoscopy with biopsy MEDICATIONS: Per Anesthesia and None. PREP QUALITY: poor ESTIMATED BLOOD LOSS: None CONSENT: The patient understands the risks and benefits of the procedure and understands that these risks include, but are not limited to: sedation, allergic reaction, infection, perforation and/or bleeding. Alternative means of evaluation and treatment include, among others: physical exam, x-rays, and/or surgical intervention. The patient elects to proceed with this endoscopic procedure. medical equipment was checked for proper function. Hand hygiene and appropriate measures for infection prevention was taken. After the risks, benefits and alternatives of the procedure were thoroughly explained, Informed consent was verified, confirmed and timeout was successfully executed by the treatment team. A digital exam was performed and revealed no abnormalities of the rectum The Pentax EC-3490Li endoscope was introduced through the anus and advanced to the cecum, which was identified by both the appendix and ileocecal valve. The instrument was then slowly withdrawn as the colon was fully examined. COLON FINDINGS: Mild diverticulosis was noted in the descending colon and sigmoid colon. Two sessile polyps ranging between 3-5mm in size were found in the sigmoid colon. A polypectomy was performed with a cold snare. Retroflexed views revealed internal hemorrhoids and Retroflexed views revealed medium internal hemorrhoids The scope was then completely withdrawn from the patient and the procedure terminated. PROCEDURE WITHDRAWAL TIME:8minutes ADVERSE EVENTS: There were no complications. IMPRESSIONS: 1. Mild diverticulosis was noted in the descending colon and sigmoid colon 2. Two sessile polyps ranging between 3-5mm in size were found in the sigmoid colon; polypectomy was performed with a cold snare 3. Retroflexed views revealed internal hemorrhoids 4. Retroflexed views revealed medium internal hemorrhoids 5. Was performed 6. Revealed no abnormalities of the rectum RECOMMENDATIONS: Await biopsy results. Biopsy results will not be ready for 7-10 days. If you don't hear from us in two weeks, call our office for results. RECALL: Return 1 year Colonoscopy Colon prep poor Iker Paulson MD eSigned: Iker Paulson MD 09/20/2018 12:15 PM cc: PATIENT NAME: Qamar Coon MR#: [id number]
--- NOTE | 2018-09-20 12:24 | GIPROC ---
[facility] [address] [facility]. [facility], [address] EGD PROCEDURE REPORT EXAM DATE: 09/20/2018 PATIENT NAME: Qamar Coon MR #: [id number] BIRTHDATE: 1955 ATTENDING: Iker Paulson MD ORDER #: [id number] SURGICAL ELASTIC KNITTER: Gbaby Vivar and Shena Veronica STATUS: inpatient INDICATIONS: The patient is a 63 yr old male here for an EGD due to iron deficiency anemia and melena PROCEDURE PERFORMED: EGD w/ biopsy MEDICATIONS: Per Anesthesia and None. TOPICAL ANESTHETIC: CONSENT: The patient understands the risks and benefits of the procedure and understands that these risks include, but are not limited to: sedation, allergic reaction, infection, perforation and/or bleeding. Alternative means of evaluation and treatment include, among others: physical exam, x-rays, and/or surgical intervention. The patient elects to proceed with this endoscopic procedure. medical equipment was checked for proper function. Hand hygiene and appropriate measures for infection prevention was taken. After the risks, benefits and alternatives of the procedure were thoroughly explained, Informed consent was verified, confirmed and timeout was successfully executed by the treatment team. The patient was anesthetized with topical anesthesia and the EC-3490Li (Pedi C) endoscope was introduced through the mouth and advanced to the proximal jejunum. Retroflexion was not performed The gastroscope was then slowly withdrawn and removed. ESOPHAGUS: There was LA Class A esophagitis noted. STOMACH: A gastric bypass was found at the gastro-jejunal anastamosis. Ulceration was seen at the site. Large august ulcer ,multiple red spots in the base.Epinephrine inj f/b APC done. JEJUNUM: The exam showed no abnormalities in the jejunum. ADVERSE EVENTS: There were no complications. IMPRESSIONS: 1. There was LA Class A esophagitis noted 2. Gastric bypass was found at the gastro-jejunal anastamosis 3. Large august ulcer ,multiple red spots in the base.Epinephrine inj f/b APC done 4. The exam showed no abnormalities in the jejunum 5. Retroflexion was not performed RECOMMENDATIONS: 1. Continue PPI 2. Monitor H/H Supportive tx PATIENT CONDITION: stable DISPOSITION: Inpatient REPEAT EXAM: Return 3 months EGD Iker Paulson MD eSigned: Iker Paulson MD 09/20/2018 12:24 PM cc: PATIENT NAME: Qamar Coon MR#: [id number]
[2018-09-20] MEDS: Pantoprazole Inj 40 MG Vial IV.PUSH SCH (15:50)
--- NOTE | 2018-09-20 16:22 | ECG ---
Date Performed: 09/19/2018 Time Performed: 11:08:46 PTAGE: 63 years EKG: Sinus rhythm LEFT AXIS DEVIATION RIGHT BUNDLE BRANCH BLOCK MINIMAL VOLTAGE CRITERIA FOR LVH, CONSIDER NORMAL VARI ANT ABNORMAL ECG NO PREVIOUS TRACING DOCTOR: Jairo Mckeon Interpretating Date/Time 09/20/2018 16:21:00
[2018-09-20 20:20] LABS: Hematocrit 23.1 % (39.0-51.0); Mean Corpuscular HGB Conc 34.6 % (32.0-36.0); Mean Corpuscular Hemoglobin 30.9 pg (27.0-34.0); Mean Corpuscular Volume 89.3 fL (80.0-100.0); Mean Platelet Volume 8.3 fL (7.0-11.0); Platelet Count 177 th/mm3 (150-450); Red Blood Count 2.58 mil/mm3 (4.50-5.90); White Blood Count 6.3 th/mm3 (4.0-11.0)
[2018-09-21] MEDS ORDERED: Pantoprazole Inj 40 MG Vial IV.PUSH SCH (06:00)
[2018-09-21 08:07] VITALS: BP 144/83; PULSE 75; RESP 16; TEMP 98; O2SAT 96
[2018-09-21 08:38] LABS: Hematocrit 22.9 % (39.0-51.0); Hemoglobin 8.1 gm/dL (13.0-17.0); Mean Corpuscular HGB Conc 35.4 % (32.0-36.0); Mean Corpuscular Hemoglobin 32.2 pg (27.0-34.0); Mean Corpuscular Volume 91.1 fL (80.0-100.0); Mean Platelet Volume 8.9 fL (7.0-11.0); Platelet Count 189 th/mm3 (150-450); Red Blood Count 2.52 mil/mm3 (4.50-5.90); Red Cell Distribution Width 13.1 % (11.6-17.2); White Blood Count 6.5 th/mm3 (4.0-11.0)
--- NOTE | 2018-09-21 12:34 | P.PNGI ---
Subjective Interval history: Patient sitting up at bedside Denies any nausea or vomiting, states tolerating full liquid diet No reported bleeding Patient post EGD and colonoscopy <Mariela Borrego - Last Filed: 09/21/18 12:28> Physical Exam Vital signs: Vital Signs 09/20/18 16:00 09/20/18 16:19 09/20/18 16:21 Temperature Pulse Rate 68 79 90 Respiratory Rate 16 16 16 Blood Pressure 109/71 110/72 126/79 Pulse Oximetry 98 96 97 09/20/18 20:00 09/20/18 23:55 09/21/18 04:02 Temperature 97.9 F 97.7 F 97.9 F Pulse Rate 78 76 72 Respiratory Rate 18 18 18 Blood Pressure 108/57 L 107/60 96/54 L Pulse Oximetry 97 98 95 09/21/18 08:00 Temperature 98.0 F Pulse Rate 75 Respiratory Rate 16 Blood Pressure 144/83 H Pulse Oximetry 96 Intake & Output 09/20/18 09/21/18 09/21/18 18:59 06:59 18:59 Intake Total 1220 / 1220 720 / 720 Balance 1220 / 1220 720 / 720 Weight 113.4 kg Intake: IV 900 / 900 NS Inj 1,000 ML @ 100 mls/hr IV 900 / 900 .CONT .Q10H TONY Rx#:[id number] Oral 120 / 120 720 / 720 Anesthesia Amount 200 / 200 Other: # Voids 4 - Constitutional no acute distress - Routine HEENT Exam Head: Present: normocephalic - Routine Respiratory Exam Present: CTA bilaterally. Absent: accessory muscle use - Routine Cardiovascular Exam Present: RRR - Routine Abdominal Exam Present: soft, normoactive bowel sounds. Absent: tenderness, distended, firm - Routine Skin Exam Present: dry, warm - Routine Neurological Exam Present: alert <Mariela Borrego - Last Filed: 09/21/18 12:28> Results - Labs CBC & Chem 7: 09/21/18 06:38 09/19/18 11:13 Laboratory Results - last 24 hr 09/20/18 09/21/18 20:11 06:38 WBC 6.3 6.5 RBC 2.58 L 2.52 L Hgb 8.0 L 8.1 L Hct 23.1 L 22.9 L MCV 89.3 91.1 MCH 30.9 32.2 MCHC 34.6 35.4 RDW 13.0 13.1 Plt Count 177 189 MPV 8.3 8.9 <Mariela Borrego - Last Filed: 09/21/18 12:28> - Labs CBC & Chem 7: 09/21/18 06:38 09/19/18 11:13 Laboratory Results - last 24 hr 09/21/18 06:38 WBC 6.5 RBC 2.52 L Hgb 8.1 L Hct 22.9 L MCV 91.1 MCH 32.2 MCHC 35.4 RDW 13.1 Plt Count 189 MPV 8.9 <ElmaDavid - Last Filed: 09/22/18 08:39> Assessment and Plan - Plan - Anemia, black stools- could be PUD, hx of gastric bypass. Endorses generalized abdominal discomfort but no nausea or vomiting. Endorses black tarry stools started yesterday. Denies any diarrhea, constipation or weight loss. he denies any NSAIDs use. He takes Tums as needed for GERD. drinks one glass of wine daily Last time he had colonoscopy was nine years ago. He has hx of gastric bypass and has been on iron supplement for long time. Abdomen/Pelvis CT 09/19/18 Postsurgical changes in the gastric and gastroesophageal region characteristic of lap band placement. Small hiatal hernia above the lap band. Otherwise no evidence of acute process, suspicious mass or lymphadenopathy. labs revealed anemia of 9.3. - History of hypertension and dyslipidemia, gastric by pass, GERD 09/21/2018 Patient sitting up in bed States stools are brown without any noted bleeding WBC 6.5 hemoglobin 8.1 hematocrit 22.9 platelet count 189 09/20/2018 EGD revealed the following findings-- 1. There was LA Class A esophagitis noted 2. Gastric bypass was found at the gastro-jejunal anastomosis 3. Large single ulcer ,multiple red spots in the base.Epinephrine inj f/b APC done 4. The exam showed no abnormalities in the jejunum 5. Retroflexion was not performed 09/20/2018 colonoscopy revealed the following findings-- 1. Mild diverticulosis was noted in the descending colon and sigmoid colon 2. Two sessile polyps ranging between 3-5mm in size were found in the sigmoid colon; polypectomy was performed with a cold snare 3. Retroflexed views revealed internal hemorrhoids 4. Retroflexed views revealed medium internal hemorrhoids 5. Was performed 6. Revealed no abnormalities of the rectum Plan We will advance diet to regular soft Monitor for bleeding Monitor hemoglobin hematocrit Avoid the use of NSAIDs Acid reflux precautions Biopsies pending Patient agrees to follow-up with advanced GI post discharge in 1 week Continue PPI Patient stable for more GI standpoint This patient has been seen by myself and Dr. Wills and this note is written on his behalf - Attending Attestation Dr. Wills <Mariela Borrego - Last Filed: 09/21/18 12:28> - Attending Attestation The patient was seen and examined. Agree with above note. <David Wills - Last Filed: 09/22/18 08:39>
--- NOTE | 2018-09-21 18:53 | P.DS ---
DS: Providers Date of admission: 09/19/18 14:17 Primary care physician: UNKNOWN Patient is a pleasant 63 year old male who presented to ED for complaints of abdominal pain and SOB found to have severe anemia requiring pRBC transfusion and GI consultation for evaluation. On EGD/Colonscopy a culprit vessel was identified and APC'd with control of hemostasis. Patient was started on protonix with planned GI outpatient follow up on follow up given history of bariatric surgery in past. Patient clinicallyt stable for discharge home. Consults: 09/19/18 14:23 Consult to Gastroenterology Routine Consulting Provider: Iker Paulson V Reason for Consultation: anemia/ GI bleed. Notified:: Office Spoke with:: Noemi Date Notified:: 09/19/18 Time Notified:: 14:27 Ordering Provider: HAMMAD 09/19/18 15:39 HUB Only Consult Order Routine Consulting Provider: Sunshine Gonsalez Brief History from admission: patient is a 63 y/o male with history of hypertension and dyslipidemia who presented back to ER with generalized weakness. he was admitted to this hospital yesterday because of chest pain. he had a negative stress test and was discharged home. he says that today when he was in the bathroom he felt dizzy and lightheaded along with some sob. he says that ' he was about to pass out'. he denies any chest pain today. he has mild generalized abdominal discomfort with no nausea or vomiting. he says that he noticed some ' very black stools' yesterday.he denies any diarrhea/ constipation or weight loss. he denies any NSAIDs use. he says that he had a colonoscopy about nine years ago which was reportedly normal. DS: Summary Patient is a pleasant 63 year old male who presented to ED for complaints of abdominal pain and SOB found to have severe anemia requiring pRBC transfusion and GI consultation for evaluation. On EGD/Colonscopy a culprit vessel was identified and APC'd with control of hemostasis. Patient was started on protonix with planned GI outpatient follow up on follow up given history of bariatric surgery in past. Patient clinicallyt stable for discharge home. Time Spent with Patient Total time spent providing and/or coordinating discharge services: > 45 min Quality: VTE Deep Vein Thrombosis/Pulmonary Embolism Present on Admission: No Results Pending studies at discharge: Pending at discharge 09/20/18 14:23 Surgical [PTH] Routine Labs on day of discharge: Labs from last 24 hours 09/21/18 09/20/18 06:38 20:11 WBC 6.5 6.3 RBC 2.52 L 2.58 L Hgb 8.1 L 8.0 L Hct 22.9 L 23.1 L MCV 91.1 89.3 MCH 32.2 30.9 MCHC 35.4 34.6 RDW 13.1 13.0 Plt Count 189 177 MPV 8.9 8.3 Impressions ITS Impressions Abdomen/Pelvis CT 09/19/18 11:07 CONCLUSION: 1. Postsurgical changes in the gastric and gastroesophageal region characteristic of lap band placement. 2. Small hiatal hernia above the lap band. 3. Otherwise no evidence of acute process, suspicious mass or lymphadenopathy. Discharge Plan Discharge Disposition Patient Disposition: Discharge Home Discharge Condition Condition: Stable Discharge Order Discharge Orders: Discharge Order (Routine); Ordered 09/21/18 Ordered By: Varghese Wilcox Discharge Details Anticipated Discharge Date: 09/21/18 Physicians Team ED Provider: Claire Larios Primary Care Provider: UNKNOWN, Attending Provider: Varghese Wilcox Other Providers: Iker Paulson V ; Sunshine Gonsalez Rxs /Orders / Referrals /Forms Prescriptions: New pantoprazole [Protonix] 40 mg tablet,delayed release (DR/EC) 40 mg PO BID 30 Days Qty: 60 RF: 1 Continue losartan 50 mg Tablet 50 mg PO DAILY RF: 0 amlodipine 5 mg Tablet 5 mg PO DAILY RF: 0 simvastatin 20 mg Tablet 20 mg PO QPM RF: 0 escitalopram oxalate 20 mg Tablet 20 mg PO DAILY RF: 0 Discontinued meloxicam 7.5 mg Tablet 7.5 mg PO DAILY RF: 0 Referrals: Iker Paulson MD [Physician] - See Instructions (Please call office to schedule follow up appointment for EGD. Endoscopy will occur in 3 months. Continue protonix 40mg BID. Large august ulcer ,multiple red spots in the base.Epinephrine injection performed. - Call office to schedule appointment for biopsy results from colonscopy. Return for colonoscopy in 1 year ) UNKNOWN, [Primary Care Provider] - See Instructions Discharge Instructions Additional Instructions: Please call office to schedule follow up appointment for endoscopy. Endoscopy will occur in 3 months as recommended by gastroenterology. Continue protonix 40mg BID. Large august ulcer ,multiple red spots in the base.Epinephrine injection performed. - Call office to schedule appointment for biopsy results from colonscopy. Return for colonoscopy in 1 year Status ED Status: Left Department Discharge Information Discharge Date/Time: 09/21/18 13:37
== END 2018-09-21 13:37 | disposition home or self-care (01) ==
LOC: NEPE 10:41 → NEDA 10:41 → NEPGCP 15:43
PROVIDERS: ADMIT Internal Medicine; ATTEND Internal Medicine
PROC: PANENDO (2018-09-20 11:30)
PROC: COLONOS (2018-09-20 11:30)
DX: Z98.84 Bariatric surgery status; K57.30 Diverticulosis of large intestine without perforation or abscess without bleeding; K64.8 Other hemorrhoids; K92.1 Melena; K63.89 Other specified diseases of intestine; K44.9 Diaphragmatic hernia without obstruction or gangrene; D50.9 Iron deficiency anemia, unspecified; R55 Syncope and collapse; D62 Acute posthemorrhagic anemia; K25.4 Chronic or unspecified gastric ulcer with hemorrhage; R19.5 Other fecal abnormalities; K63.5 Polyp of colon; F32.9 Major depressive disorder, single episode, unspecified; R53.1 Weakness; Z79.899 Other long term (current) drug therapy; K64.5 Perianal venous thrombosis; E78.5 Hyperlipidemia, unspecified; E87.8 Other disorders of electrolyte and fluid balance, not elsewhere classified; I10 Essential (primary) hypertension